=== PATIENT | male | born 1950 | race Caucasian/White ===

== ENCOUNTER 2018-06-19 08:22 | Emergency (ER) | payer OTHER, MEDICARE ==
[~2018-06-19] VITALS: Ht 165.1 cm; Wt 88.5 kg
[~2018-06-19 08:22] MED LIST: CLINDAMYCIN150 MG PO; PREVACID30 M2 PO; ZOFRAN4 MG PO
[2018-06-19] MEDS ORDERED: ZOFRAN4 MG PO (10:04)
== END 2018-06-19 10:38 | disposition home or self-care (01) ==
LOC: ED 08:22
DX: S01.21XA Laceration without foreign body of nose, initial encounter (principal); S01.411A Laceration without foreign body of right cheek and temporomandibular area, initial encounter; Z88.0 Allergy status to penicillin; W01.198A Fall on same level from slipping, tripping and stumbling with subsequent striking against other object, initial encounter; Y93.89 Activity, other specified; Y92.69 Other specified industrial and construction area as the place of occurrence of the external cause; Y99.8 Other external cause status

== ENCOUNTER 2018-06-26 10:29 | Emergency (ER) | payer MEDICARE ==
[~2018-06-26] VITALS: Wt 86.2 kg
== END 2018-06-26 11:51 | disposition home or self-care (01) ==
LOC: ED 10:29
DX: S01.21XD Laceration without foreign body of nose, subsequent encounter (principal); Z48.02 Encounter for removal of sutures; Z79.899 Other long term (current) drug therapy; Z88.0 Allergy status to penicillin; W01.198D Fall on same level from slipping, tripping and stumbling with subsequent striking against other object, subsequent encounter

== ENCOUNTER 2020-12-13 19:58 | Emergency (ER) | payer MEDICARE ==
[~2020-12-13] VITALS: Ht 165.1 cm; Wt 83.9 kg
[2020-12-13] MEDS ORDERED: MEDROL DOSEPAK4 MG PO (22:41)
== END 2020-12-13 22:41 | disposition home or self-care (01) ==
LOC: ED 19:58
DX: M10.071 Idiopathic gout, right ankle and foot (principal); Z88.0 Allergy status to penicillin; Z79.2 Long term (current) use of antibiotics; Z79.899 Other long term (current) drug therapy; W18.49XA Other slipping, tripping and stumbling without falling, initial encounter; Y93.89 Activity, other specified; Y92.89 Other specified places as the place of occurrence of the external cause; Y99.8 Other external cause status

== ENCOUNTER 2021-05-28 21:21 | Emergency (ER) | payer MEDICARE ==
[~2021-05-28] VITALS: Ht 165.1 cm; Wt 80.3 kg
[~2021-05-28 21:21] MED LIST changes: +MEDROL DOSEPAK4 MG PO
== END 2021-05-29 03:06 | disposition home or self-care (01) ==
LOC: ED 21:21
DX: I69.959 Hemiplegia and hemiparesis following unspecified cerebrovascular disease affecting unspecified side (principal)

== ENCOUNTER 2021-08-12 20:46 | Emergency (ER) | payer MEDICARE ==
[~2021-08-12] VITALS: Ht 165.1 cm; Wt 74.8 kg
[2021-08-12 21:10] LABS: HEMATOCRIT 46.1 % (42.0-52.0); MEAN CELL VOLUME 97.1 fl (80.0-94.0); MEAN CORPUSCULAR HGB 32.4 pg (27.0-31.0); MEAN CORPUSCULAR HGB CONC 33.4 g/dl (33.0-37.0); MEAN PLATELET VOLUME 11.8 fl (9.6-12.3); PLATELET COUNT AUTOMATED 217 10*3/uL (130-400); RED BLOOD COUNT 4.75 10*6/uL (4.50-5.90); RED CELL DISTRI WIDTH 13.1 % (0-14.5); WHITE BLOOD COUNT 25.3 10*3/uL (4.8-10.8)
[2021-08-12 21:11] LABS: MANUAL DIFF REFLEX YES
[2021-08-12 21:21] LABS: ACT PARTIAL THROMBO TIME 24.3 SECONDS (20.0-32.1)
[2021-08-12 21:23] LABS: CREATININE 1.51 mg/dL (0.70-1.30); POTASSIUM 4.1 mmol/L (3.5-5.1); TOTAL PROTEIN 7.2 gm/dL (6.4-8.2)
[2021-08-12 21:37] LABS: TOTAL CELLS COUNTED 100 #CELLS
[2021-08-12 21:38] LABS: PLATELET SUFFICIENCY NORMAL (NORMAL)
[2021-08-12 22:46] LABS: BILIRUBIN Negative (Negative); BLOOD Trace-Lysed (Negative); CLARITY Clear (Clear); COLOR Yellow (Yellow); GLUCOSE Negative (Negative); KETONE Trace (Negative); LEUKO ESTERASE Negative (Negative); NITRITE Negative (Negative); SPECIFIC GRAVITY 1.025 (1.001-1.030); UROBILINOGEN 0.2 E.U./dl (0.0-1.0)
[2021-08-12 22:54] LABS: BACTERIA TRACE
[2021-08-13 10:02] LABS: BASO % 0.2 % (0.0-1.0); HEMATOCRIT 42.8 % (42.0-52.0); LYMPH # 0.8 10*3/uL (1.3-4.4); LYMPH % 4.1 % (27.0-41.0); MEAN CELL VOLUME 96.6 fl (80.0-94.0); MEAN CORPUSCULAR HGB CONC 34.1 g/dl (33.0-37.0); MEAN PLATELET VOLUME 11.8 fl (9.6-12.3); MONO # 1.2 10*3/uL (0.1-1.0); MONO % 6.6 % (3.0-9.0); NEUT % 88.7 % (47.0-73.0); PLATELET COUNT AUTOMATED 164 10*3/uL (130-400); RED BLOOD COUNT 4.43 10*6/uL (4.50-5.90); RED CELL DISTRI WIDTH 13.1 % (0-14.5); WHITE BLOOD COUNT 18.1 10*3/uL (4.8-10.8)
[2021-08-13 10:14] LABS: BUN 25 mg/dl (7-24); CHLORIDE 105 mmol/L (98-107); CREATININE 1.15 mg/dL (0.70-1.30); POTASSIUM 3.3 mmol/L (3.5-5.1); SODIUM 137 mmol/L (136-145)
== END 2021-08-15 18:01 | disposition short-term general hospital (02) ==
LOC: ED 20:46
PROVIDERS: Emergency Medicine; Nurse Practitioner Family
DX: R33.9 Retention of urine, unspecified (principal); M54.9 Dorsalgia, unspecified; Z88.0 Allergy status to penicillin; Z79.899 Other long term (current) drug therapy

== ENCOUNTER 2023-07-27 18:29 | Emergency (ER) | payer MEDICARE ==
[~2023-07-27] VITALS: Wt 81.6 kg
[2023-07-27] VITALS (8 sets, daily range): BP systolic 116–147; BP diastolic 60–78
[2023-07-27] MEDS ORDERED: AMLODIPINE BESYL5 MG PO (19:42)
[2023-07-27] MEDS ORDERED: MONTELUKAST SOD10 MG PO (19:42)
[2023-07-27] MEDS ORDERED: CYMBALTA60 MG PO (19:43)
[2023-07-27] MEDS ORDERED: SENOKOT8.6 MG PO (19:44)
[2023-07-27] MEDS ORDERED: FLOMAX0.4 MG PO (19:44)
[2023-07-27] MEDS ORDERED: MIRALAX17 GM PO (19:45)
[2023-07-27] MEDS ORDERED: MELATONIN5 M7 PO (19:45)
[2023-07-27] MEDS ORDERED: LIPITOR20 MG PO (19:46)
[2023-07-27] MEDS ORDERED: AMITRIPTYLINE25 MG PO (19:46)
[2023-07-27] MEDS ORDERED: ELIQUIS5 M1 PO (19:47)
[2023-07-27] MEDS ORDERED: ASPIRIN ADULT L81 M1 PO (19:47)
[2023-07-27 20:01] LABS: HEMATOCRIT 22.9 % (42.0-52.0); MEAN CELL VOLUME 96.6 fl (80.0-94.0); MEAN CORPUSCULAR HGB 29.1 pg (27.0-31.0); MEAN CORPUSCULAR HGB CONC 30.1 g/dl (33.0-37.0); MEAN PLATELET VOLUME 10.6 fl (9.6-12.3); PLATELET COUNT AUTOMATED 252 10*3/uL (130-400); RED BLOOD COUNT 2.37 10*6/uL (4.50-5.90); RED CELL DISTRI WIDTH 16.1 % (0-14.5); WHITE BLOOD COUNT 6.7 10*3/uL (4.8-10.8)
[2023-07-27 20:03] LABS: MANUAL DIFF REFLEX YES
[2023-07-27 20:10] LABS: ACT PARTIAL THROMBO TIME 26.5 SECONDS (20.0-32.1)
[2023-07-27 20:20] LABS: ALKALINE PHOSPHATASE 83 U/L (46-116); BUN 47 mg/dl (9-23); CHLORIDE 110 mmol/L (98-107); LIPASE 49 U/L (12-53); POTASSIUM 4.2 mmol/L (3.4-5.1); TOTAL PROTEIN 6.4 gm/dL (6.0-8.0)
[2023-07-27 20:21] LABS: SGPT/ALT < 7 U/L (5-49)
[2023-07-27 20:25] LABS: BASOPHILS 1 % (0-1); PLATELET SUFFICIENCY NORMAL (NORMAL); TOTAL CELLS COUNTED 100 #CELLS
[2023-07-27 20:26] LABS: POLYCHROMASIA SLIGHT; ROULEAUX SLIGHT
[2023-07-27] MEDS ORDERED: LOPRESSOR25 MG PO (21:10)
[2023-07-27] MEDS ORDERED: SODIUM CHLORIDE 0.9% 500 ML IV ONE (21:34)
[2023-07-28] VITALS: BP 145/79
[2023-07-28 00:56] LABS: BILIRUBIN Negative (Negative); BLOOD 3+ (Negative); CLARITY Cloudy (Clear); COLOR Red (Yellow); GLUCOSE Trace (Negative); KETONE Negative (Negative); LEUKO ESTERASE 2+ (Negative); NITRITE Negative (Negative); SPECIFIC GRAVITY 1.015 (1.001-1.030)
[2023-07-28 01:10] LABS: BASO # 0.1 10*3/uL (0.0-0.1); BASO % 0.6 % (0.0-1.0); EOS # 0.3 10*3/uL (0.0-0.4); EOS % 3.9 % (1.0-4.0); HEMATOCRIT 25.6 % (42.0-52.0); LYMPH # 1.1 10*3/uL (1.3-4.4); LYMPH % 13.2 % (27.0-41.0); MEAN CELL VOLUME 94.1 fl (80.0-94.0); MEAN CORPUSCULAR HGB CONC 30.9 g/dl (33.0-37.0); MEAN PLATELET VOLUME 10.3 fl (9.6-12.3); MONO # 0.9 10*3/uL (0.1-1.0); MONO % 10.9 % (3.0-9.0); NEUT # 5.8 10*3/uL (2.3-7.9); NEUT % 70.8 % (47.0-73.0); PLATELET COUNT AUTOMATED 224 10*3/uL (130-400); RED BLOOD COUNT 2.72 10*6/uL (4.50-5.90); WHITE BLOOD COUNT 8.2 10*3/uL (4.8-10.8)
[2023-07-28 01:19] LABS: BACTERIA 1+; RBC TNTC rbc/hpf (0-2); WBC 21-30 wbc/hpf (0-5)
== END 2023-07-28 02:08 | disposition home or self-care (01) ==
LOC: ED 18:29
PROVIDERS: Internal Medicine
DX: T83.021A Displacement of indwelling urethral catheter, initial encounter (principal); I10 Essential (primary) hypertension; I25.10 Atherosclerotic heart disease of native coronary artery without angina pectoris; R10.2 Pelvic and perineal pain; D50.0 Iron deficiency anemia secondary to blood loss (chronic); Z88.0 Allergy status to penicillin; Z98.890 Other specified postprocedural states; Y82.8 Other medical devices associated with adverse incidents; Y92.89 Other specified places as the place of occurrence of the external cause